=== PATIENT | female | born 1965 | race Caucasian/White ===

== ENCOUNTER → 2019-05-19 10:40 | Outpatient (BNVA) | payer MEDICARE, SELFPAY | PROVIDERS: Family Provider Family Medicine; PCP Family Medicine; Visit Provider Nurse Practitioner | DX: M51.37 Other intervertebral disc degeneration, lumbosacral region (principal); M96.1 Postlaminectomy syndrome, not elsewhere classified; R11.0 Nausea; Z79.891 Long term (current) use of opiate analgesic | CPT/HCPCS: 99214 ==

== ENCOUNTER 2019-05-19 13:24 | Outpatient (CLI) | payer MEDICARE, SELFPAY ==
[2019-05-16 09:45] VITALS: BP 144/85; BMI 40.2
--- NOTE | 2019-05-19 14:24 | XR_ITS ---
WS: [id number] LUMBAR SPINE TECHNIQUE: 3 views of the lumbar spine CLINICAL INFORMATION: BACK PAIN, DORSALGIA, UNSPECIFIED COMPARISON: None. FINDINGS: Mild lumbar curve convex right. Cholecystectomy clips. No acute appearing compression fractures. Mild disc space narrowing L4-L5 and L5-S1. Moderate facet arthropathy L5-S1. Pelvic phleboliths. XR/XR lumbar spine 2-3V* [id number] IMPRESSION: Mild lumbar curve convex right. Otherwise No acute lumbar spine findings.
== END 2019-05-19 13:25 | disposition home or self-care (01) ==
PROVIDERS: Family Provider Family Medicine; PCP Family Medicine; Visit Provider Nurse Practitioner
DX: M54.5 Low back pain (principal)
CPT/HCPCS: 72100

== ENCOUNTER → 2019-10-06 09:21 | Outpatient (BNVA) | payer MEDICARE, SELFPAY ==
[2019-05-16 09:45] VITALS: BP 144/85; BMI 40.2
== END ==
PROVIDERS: Family Provider Family Medicine; PCP Family Medicine; Visit Provider Anesthesiology
DX: M51.37 Other intervertebral disc degeneration, lumbosacral region (principal); M54.9 Dorsalgia, unspecified; M96.1 Postlaminectomy syndrome, not elsewhere classified; Z79.891 Long term (current) use of opiate analgesic
CPT/HCPCS: 99213; 99214

== ENCOUNTER → 2020-02-21 13:35 | Outpatient (BNVA) | payer MEDICARE, SELFPAY ==
[2020-02-17 14:13] VITALS: BP 142/80; BMI 42.8
== END ==
PROVIDERS: Family Provider Family Medicine; PCP Family Medicine; Visit Provider Anesthesiology
DX: M51.37 Other intervertebral disc degeneration, lumbosacral region (principal); M96.1 Postlaminectomy syndrome, not elsewhere classified; M54.9 Dorsalgia, unspecified; M54.2 Cervicalgia; Z79.891 Long term (current) use of opiate analgesic
CPT/HCPCS: 99214

== ENCOUNTER → 2020-03-16 11:05 | Outpatient (BNVA) | payer MEDICARE, SELFPAY ==
[2020-02-17 14:13] VITALS: BP 142/80; BMI 42.8
== END ==
PROVIDERS: Family Provider Family Medicine; PCP Family Medicine; Visit Provider Surgery
DX: Z20.828 Contact with and (suspected) exposure to other viral communicable diseases (principal)
CPT/HCPCS: 87635

== ENCOUNTER 2020-03-21 09:50 | Day surgery (SDC) | payer MEDICARE, SELFPAY ==
[2020-02-17 14:13] VITALS: BP 142/80; BMI 42.8
[2020-03-19 14:25] VITALS: BMI 44.1
[2020-03-21 10:52] VITALS: BP 196/125; PULSE 91; RESP 18; TEMP 36.2; O2SAT 99
--- NOTE | 2020-03-21 10:56 | W.PM.OPSFHP ---
Same Day Surgery H&P Indication for Procedure/HPI DATE OF PROCEDURE: March 21, 2020 CHIEF COMPLAINT/INDICATIONFOR SURGICAL PROCEDURE: Screening colonoscopy PREOP DIAGNOSIS: Family history of colon cancer PLANNED PROCEDRUE: Operation Date: 03/21/20 11:00 Proposed Procedures p Colonoscopy 22857 Z80.0(Not Applicable) - Tanmay Rodas MD History of present illness: This is a pleasant 54 years old female patient morbidly obese with a family history of colon cancer of her father, aunt and cousins. She denies bleeding per rectum or nonintentional weight loss. She reports that she had a colonoscopy before 6 years and was reported as normal. Patient is here today to discuss potential screening colonoscopy Interim history 03/21/2020 Patient comes today for screening colonoscopy ROS All systems have been reviewed negative except as per the above or per problem list. Medications/Allergies* Home Medications Medication Instructions Recorded Confirmed Type albuterol sulfate 90 mcg/actuation 1 inh INHALATION ONCE PRN 05/19/19 03/19/20 History aerosol inhaler atorvastatin 10 mg tablet 10 mg PO QDAY 05/19/19 03/21/20 History glimepiride 1 mg tablet 1 mg PO QAM 05/19/19 03/21/20 History hydroxyzine HCl 25 mg tablet 25 mg PO TID PRN 05/19/19 03/21/20 History metformin 750 mg tablet,extended 750 mg PO QDAY 05/19/19 03/21/20 History release 24 hr omeprazole 40 mg capsule,delayed 40 mg PO QDAY 05/19/19 03/21/20 History release polyethylene glycol 1450(bulk) each MISCELLANEOUS .as needed gm 05/19/19 02/21/20 History ropinirole 0.5 mg tablet 0.5 mg PO BID 05/19/19 03/21/20 History Allergies/Adverse Reactions Allergy/AdvReac Type Severity Reaction Status Date / Time buprenorphine [From Butrans] Allergy Unknown Unconscious Verified 03/21/20 10:56 codeine Allergy Unknown Verified 03/21/20 10:56 hydrocodone Allergy ALGY-Difficulty Verified 03/21/20 10:56 Breathing morphine Allergy ADR-Nausea Verified 03/21/20 10:56 oxycodone [From Roxicet] Allergy ALGY-Rash Verified 03/21/20 10:56 tramadol Allergy ADR-Nausea Verified 03/21/20 10:56 Pertinent History/Comorbid Conditions* Medical History (Updated 02/13/20 @ 12:52 by Tanmay Rodas MD) DDD (degenerative disc disease), lumbosacral Failed back syndrome, cervical Family history of colon cancer 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 Surgical History (Updated 05/19/19 @ 11:27 by JD Morris) Hx of section Hx of cholecystectomy 1995 Hx of hysterectomy 2012 Hx of neck surgery 2001 [place]- Fusion C6-C7 ACDFF Hx of tubal ligation Family History (Updated 02/13/20 @ 09:44 by Yani Chan LPN) Diabetes Unknown family members in general Heart disease Unknown Cancer Grandmother breast cancer-family members in general ovarian cancer-daughter brain cancer-paternal grandmother Denies family history of Anesthesia complication Bleeding disorder Social History Smoking and tobacco status: never smoked Second hand smoke exposure: No Alcohol intake: never Household members: spouse Marital status: Current occupational status: disabled History of recent travel: No Current gender identity: Female Pertinent Exam Findings alert, oriented x 3, clear to auscultation bilaterally, regular rate & rhythm and procedure specific exam findings (Abdominal examination nontender nondistended soft) Recommendations Surgery/Procedure today (Screening colonoscopy) Coding Level of Care Code Acute Welding Machine Operator Plasma Arc for Marcell Shah
[2020-03-21] MEDS: sodium chloride 0.9% 1,000 ML 30 ML IV (11:26)
--- NOTE | 2020-03-21 11:41 | ANES.PREANE2 ---
Pre-Anesthetic Assessment Pre-Anesthetic Assessment: Height/Weight: Height 1.55 m Weight 106.141 kg Temp Pulse Resp BP Pulse Ox 97.1 F L 91 18 196/125 99 03/21/20 10:52 03/21/20 10:52 03/21/20 10:52 03/21/20 10:52 03/21/20 10:52 Preop Diagnosis: Family history of colon cancer Proposed Procedure: Operation Date: 03/21/20 11:00 Proposed Procedures p Colonoscopy 71529 Z80.0(Not Applicable) - Tanmay Rodas MD Familial anesthetic complications: none Was Beta Karely taken within 24 hours: N/A Last intake: Intake Last Liquid Date 03/20/20 Last Liquid Time 19:00 Last Solid Date 03/19/20 Last Solid Time 18:00 Social: Social History: No alcohol and No tobacco Exam: Pre-Anes Outpt Exam: alert, oriented x 3, clear to auscultation bilaterally and regular rate & rhythm Airway: MP: 3 Dentition: Full Pulmonary: Pulmonary: Asthma GI: GI: GERD Metabolic: Metabolic: DM, Hyperlipidemia and Morbid obesity Neuropsych: Neuropsych: Anxiety Anesthetic Plan: ASA status: 2 Anesthesia: MAC Risk of > 500 ml blood loss (7ml/kg in children): No Meds/Allergies Current Medications: Current Medications Generic Name Dose Route Start Last Admin Trade Name Freq PRN Reason Stop Dose Admin Sodium Chloride 1,000 mls @ 30 ml s/hr 03/21/20 11:00 03/21/20 11:26 Sodium Chloride 0.9% IV 03/22/20 10:59 30 mls/hr .Q24H DALY Administration PFSH Anesthesia PFSH: Medical History (Updated 03/21/20 @ 13:25 by Tanmay Rodas MD) DDD (degenerative disc disease), lumbosacral Failed back syndrome, cervical Family history of colon cancer Generalized anxiety disorder penitentiary (current) use of opiate analgesic Surgical History Hx of section Hx of cholecystectomy 1995 Hx of hysterectomy 2012 Hx of neck surgery 2001 [place]- Fusion C6-C7 ACDFF Hx of tubal ligation Family History Grandmother Cancer breast cancer-family members in general ovarian cancer-daughter brain cancer-paternal grandmother Unknown Diabetes family members in general Unknown Heart disease Denies family history of Anesthesia complication Bleeding disorder Social History Smoking and tobacco status: never smoked Second hand smoke exposure: No Alcohol intake: never Household members: spouse Marital status: Current occupational status: disabled History of recent travel: No Current gender identity: Female Data Anesthesia Cardiac Studies: No Data to Display
[2020-03-21 11:43] LABS: Glucose Point of Care 148 mg/dL (70-110)
[2020-03-21] MEDS: labetalol 5 mg/mL SDV 20mL IVP ×2 (11:52→12:18)
[2020-03-21 12:19] VITALS: BP 173/111
[2020-03-21 12:31] VITALS: BP 183/109
[2020-03-21 12:51] VITALS: BP 186/105
[2020-03-21 13:25] VITALS: BP 126/79; PULSE 88; RESP 16; TEMP 36.1; O2SAT 97
[2020-03-21 13:41] VITALS: BP 145/92; PULSE 82; RESP 16; O2SAT 98
--- NOTE | 2020-03-21 21:08 | ANE.PACU2 ---
Inpatient post-anesthesia follow up: Airway intact: Yes Vital signs: Temperature 97 F Pulse Rate 82 Respiratory Rate 16 Blood Pressure 145/92 Pulse Oximetry 98 Oxygen Delivery Me thod Room Air Oxygen Flow Rate Fraction of Inspir ed Oxygen Hydration adequate: Yes Nausea and vomiting: No Pain level: 1 Mental status: Baseline
== END 2020-03-21 13:55 | disposition home or self-care (01) ==
PROVIDERS: PCP Family Medicine; Visit Provider Surgery
PROC: 0DJD8ZZ Inspection of Lower Intestinal Tract, Via Natural or Artificial Opening Endoscopic (ICD-10-PCS; CPT 45378; principal; 2020-03-21 11:00)
DX: Z12.11 Encounter for screening for malignant neoplasm of colon (principal); K57.30 Diverticulosis of large intestine without perforation or abscess without bleeding; E11.9 Type 2 diabetes mellitus without complications; E78.5 Hyperlipidemia, unspecified; E66.01 Morbid (severe) obesity due to excess calories; Z68.41 Body mass index [BMI] 40.0-44.9, adult; F41.9 Anxiety disorder, unspecified; M51.37 Other intervertebral disc degeneration, lumbosacral region; Z79.891 Long term (current) use of opiate analgesic; Z80.0 Family history of malignant neoplasm of digestive organs
CPT/HCPCS: 12345; 36416; 45378; 82962; J2704; J3490; J7030

== ENCOUNTER → 2020-05-18 09:47 | Outpatient (BNVA) | payer MEDICARE, SELFPAY ==
[2020-02-17 14:13] VITALS: BP 142/80; BMI 42.8
== END ==
PROVIDERS: PCP Family Medicine; Visit Provider Nurse Practitioner
DX: M25.512 Pain in left shoulder (principal); M51.37 Other intervertebral disc degeneration, lumbosacral region; M54.2 Cervicalgia; M96.1 Postlaminectomy syndrome, not elsewhere classified; M54.9 Dorsalgia, unspecified; Z79.891 Long term (current) use of opiate analgesic
CPT/HCPCS: 99214

== ENCOUNTER 2020-05-28 10:42 | Outpatient (CLI) | payer MEDICARE, SELFPAY ==
[2020-02-17 14:13] VITALS: BP 142/80; BMI 42.8
--- NOTE | 2020-05-28 11:00 | MR_ITS ---
WS: [id number] MRI LEFT SHOULDER NONCONTRAST TECHNIQUE: Sagittal T2, coronal T1, T2 and proton density imaging. Axial gradient PDE imaging. CLINICAL INFORMATION: M25.512 - Pain in left shoulder COMPARISON: None. FINDINGS: Moderate degenerative arthritis at the AC joint with mild edema. Mild downsloping of the acromion. Sl ight subacromial spurring. Mild chronic thinning of the distal supraspinatus. Normal infraspinatus. N ormal teres minor and subscapularis. No full-thickness rotator cuff tears. Normal biceps tendon in the bicipital groove. Degenerative fraying of the glenoid labrum. Biceps labr al anchor appears intact. Intra-articular biceps tendon appears intact. MR/MR shoulder LT wo con* [id number] IMPRESSION: 1. Moderate degenerative arthritis AC joint with mild edema. 2. Chronic thinning of the distal supraspinatus. No rotator cuff tears. 3. Normal biceps tendon in the bicipital groove. 4. Degenerative fraying glenoid labrum which appears grossly intact. 5. Moderate degenerative arthritis glenohumeral joint.
== END 2020-05-28 10:43 | disposition home or self-care (01) ==
LOC: RADSHAW 10:46
PROVIDERS: PCP Family Medicine; Visit Provider Nurse Practitioner
DX: M19.012 Primary osteoarthritis, left shoulder (principal); R60.0 Localized edema
CPT/HCPCS: 73221

== ENCOUNTER → 2020-07-13 09:55 | Outpatient (BNVA) | payer MEDICARE, SELFPAY ==
[2020-02-17 14:13] VITALS: BP 142/80; BMI 42.8
== END ==
PROVIDERS: PCP Family Medicine; Visit Provider Nurse Practitioner
DX: M51.37 Other intervertebral disc degeneration, lumbosacral region (principal); M96.1 Postlaminectomy syndrome, not elsewhere classified; M54.9 Dorsalgia, unspecified; M19.012 Primary osteoarthritis, left shoulder; Z79.891 Long term (current) use of opiate analgesic
CPT/HCPCS: 99213

== ENCOUNTER → 2020-09-13 10:15 | Outpatient (BNVA) | payer MEDICARE, SELFPAY ==
[2020-02-17 14:13] VITALS: BP 142/80; BMI 42.8
== END ==
PROVIDERS: PCP Family Medicine; Visit Provider Nurse Practitioner
DX: M51.37 Other intervertebral disc degeneration, lumbosacral region (principal); M96.1 Postlaminectomy syndrome, not elsewhere classified; M54.9 Dorsalgia, unspecified; M19.012 Primary osteoarthritis, left shoulder; Z79.891 Long term (current) use of opiate analgesic
CPT/HCPCS: 99213

== ENCOUNTER 2020-12-06 17:43 | Emergency (ER) | payer MEDICARE, SELFPAY ==
[2020-09-13 11:04] VITALS: BP 142/80; BMI 42.8
--- NOTE | 2020-12-06 17:57 | XRR_ITS ---
PROCEDURE INFORMATION: Exam: XR Chest Exam date and time: 12/06/2020 5:57 PM Age: 55 years old Clinical indication: Cough and shortness of breath; Additional info: Short of breath TECHNIQUE: Imaging protocol: XR of the chest. Views: 1 view. COMPARISON: MR shoulder LT wo con* [id number] 05/28/2020 12:33 PM FINDINGS: Lungs: Some hazy and linear opacities are seen in the lung bases most probably representing atelectasis. Bibasilar pneumonitis cannot be entirely excluded. Pleural spaces: Unremarkable. No pleural effusion. No pneumothorax. Heart/Mediastinum: Unremarkable. No cardiomegaly. Bones/joints: Unremarkable. XR/XR chest 1V portable [id number] IMPRESSION: Probable mild bilateral basilar atelectasis although a bibasilar pneumonitis cannot be entirely excluded.
[2020-12-06 18:32] VITALS: BP 135/100; PULSE 115; RESP 32; TEMP 38.7; O2SAT 98
[2020-12-06 22:59] VITALS: BP 162/108; PULSE 108; RESP 22; O2SAT 98
[2020-12-06 23:28] LABS: SARS Covid-2 Antigen Positive (Negative)
--- NOTE | 2020-12-06 23:38 | ED_ITS ---
HPI - COVID General: Chief Complaint: COVID symptoms Stated Complaint: cough, fever, sob Time Seen by Provider: 12/06/20 23:00 Source: patient Mode of arrival: ambulatory Limitations: no limitations Triage information: No fever, cough or shortness of breath . No known COVID + exposure last 14 days History of Present Illness: HPI Narrative: 55-year-old female has a history of COPD states that she has been having cold-like symptoms for 1 week and has been exposed to Covid. States that her cough and fever and worsened today. She has had some shortness of breath as well. Denies any vomiting or diarrhea. She denies any pain anywhere. Patient's pulse ox here is 94%. COVID 19 common symptoms: positive fever(s), chills, productive cough, dyspnea and body aches; negative headache(s), throat pain, nausea, vomiting or diarrhea COVID 19 other sytmptoms: negative chest pain COVID Results: SARS-CoV-2 Antigen (Rapid) Positive (Negative) H 12/06/20 23:02 12/06/20 SARS-CoV-2 RNA (RT-PCR) Not detected (NOT DETECTED) 03/16/20 11:05 03/16/20 Review of Systems Const: Reports: fever(s), chills and body aches Eyes: Denies: blurry vision or eye discomfort ENMT: Denies: throat pain or dental pain Card: Denies: chest pain Resp: Reports: dyspnea and productive cough GI: Denies: abdominal pain, nausea, vomiting or diarrhea : Denies: dysuria Musc: Denies: neck pain or back pain Skin/Breast: Denies: rash Neuro: Denies: headache(s) Psych: Denies: depression Jeff/Lymph: Denies: easy bruising All/Imm: Denies: urticaria PFSH ED PFSH: Medical History DDD (degenerative disc disease), lumbosacral Diverticula of colon Failed back syndrome, cervical Family history of colon cancer Generalized anxiety disorder residential (current) use of opiate analgesic Surgical History Hx of section Hx of cholecystectomy 1995 Hx of hysterectomy 2012 Hx of neck surgery 2001 [place]- Fusion C6-C7 ACDFF Hx of tubal ligation Family History Grandmother Cancer breast cancer-family members in general ovarian cancer-daughter brain cancer-paternal grandmother Unknown Diabetes family members in general Unknown Heart disease Denies family history of Anesthesia complication Bleeding disorder Social History Smoking and tobacco status: never smoked Second hand smoke exposure: No Alcohol intake: never Household members: spouse Marital status: Current occupational status: disabled History of recent travel: No Current gender identity: Female Physical Exam Const: COMMON NORMALS: no acute distress, patient oriented x3 and healthy appearing HENMT: COMMON NORMALS: normocephalic and atraumatic HEAD & SCALP: normocephalic and atraumatic Eye: COMMON NORMALS: Equal, round and reactive pupils present and EOMs intact bilaterally PUPIL: Yes Equal, round and reactive pupils present Neck/C-Spine: COMMON NORMALS: full ROM and supple Chest: COMMONS NORMALS: normal inspection of the chest and normal palpation of entire chest wall Resp: COMMON NORMALS: normal respiratory effort, No retractions, No use of accessory muscles and clear to auscultation bilaterally AUSCULTATION: clear to auscultation bilaterally Cardio: COMMON NORMALS: regular rate, regular rhythm and No murmurs present (Cardio) RATE: regular rate RHYTHM: regular rhythm GI: COMMON NORMALS: Normal to inspection, nondistended, normoactive bowel sounds present, Soft to palpation, non-tender and no masses PALPATION: Yes Soft to palpation Extremity: COMMON NORMALS: normal to inspection and full ROM Neuro: COMMON NORMALS: patient oriented x3, moves all extremities and no focal motor deficits Psych: COMMON NORMALS: mental status grossly normal, Normal thought process present and cooperative THOUGHT PROCESS: Normal thought process present Skin: COMMON NORMALS: no rashes or lesions noted and no wounds GENERAL SKIN EXAM: no rashes or lesions noted Course Vital Signs: Vital signs: Vital Signs Temperature 101.6 F H 12/06/20 18:32 Pulse Rate 108 H 12/06/20 22:59 Respiratory Rate 22 H 12/06/20 22:59 Blood Pressure 162/108 12/06/20 22:59 Pulse Oximetry 98 12/06/20 22:59 MDM - COVID MDM Narrative: Medical decision making narrative: Patient presents here with cough fever and did test positive for Covid. Her x-ray here is clear and she is not requiring any oxygen. We will place her on steroids. Did put an outpatient order in for monoclonal antibody. I did discuss this with her. She is to return if worsening. Lab Data: Labs: Lab Results 12/06/20 Range/Units 23:02 SARS-CoV-2 Ag (Rap id) Positive H (Negative) COVID Results: SARS-CoV-2 Antigen (Rapid) Positive (Negative) H 12/06/20 23:02 12/06/20 SARS-CoV-2 RNA (RT-PCR) Not detected (NOT DETECTED) 03/16/20 11:05 03/16/20 Discharge Plan Discharge Patient Disposition: Home Clinical Impression: COVID-19 Condition: Stable Prescriptions: New Medrol (Chaitanya) 4 mg tablets,dose pack See Rx Instructions .ROUTE .COMPLEX Qty: 21 RF: 0 No Action ropinirole 0.5 mg tablet 0.5 mg PO BID RF: 0 metformin 750 mg tablet extended release 24 hr 750 mg PO QDAY RF: 0 omeprazole 40 mg capsule,delayed release(DR/EC) 40 mg PO QDAY RF: 0 glimepiride 1 mg tablet 1 mg PO QAM RF: 0 atorvastatin 10 mg tablet 10 mg PO QDAY RF: 0 polyethylene glycol 1450(bulk) [Polyglycol Yifan Base] Powder miscellaneous .as needed RF: 0 albuterol sulfate [Ventolin HFA] 90 mcg/actuation HFA aerosol inhaler 1 inh INHALATION ONCE PRN (Reason: Shortness Of Breath) RF: 0 promethazine 25 mg tablet 25 mg PO Q6H MDD 4 PRN (Reason: nausea and vomiting) Qty: 120 RF: 1 meloxicam [Mobic] 15 mg tablet 15 mg PO DAILY RF: 0 aripiprazole [Abilify] 5 mg tablet 5 mg PO QDAY Qty: 90 RF: 1 tizanidine 4 mg tablet 4 mg PO TID PRN (Reason: muscle spasticity) Qty: 90 RF: 2 hydromorphone 2 mg tablet 2 mg PO TID 30 Days Qty: 90 RF: 0 pregabalin 75 mg capsule 75 mg PO TID 30 Days Qty: 90 RF: 1 hydromorphone 2 mg tablet 2 mg PO TID PRN (Reason: pain) 30 Days Qty: 90 RF: 0 Discharge Orders: Discharge ED (Routine); Ordered 12/06/20 Ordered By: Darrel Diego Other Ambulatory Orders: Request for MCA (Routine) Timeframe: 1 Day Facility: [facility] - Location: Outpatient [facility] Ordered By: Darrel Diego Referrals: Mari Pratt MD [Primary Care Provider] - Discharge Diet: Advance as tolerated Discharge Activity: Resume usual activity Patient Instructions: Viral Syndrome (ED) Coding Level of Care Code ED Media Production Support Manager for Chg Fwd Exam Comprehensive
[2020-12-06] MEDS: predniSONE 20 mg Tablet 40 MG PO (23:51)
[2020-12-07 00:05] VITALS: O2SAT 96
[2020-12-07 00:07] VITALS: BP 141/85; PULSE 101; RESP 18; O2SAT 95
== END 2020-12-07 00:09 | disposition home or self-care (01) ==
PROVIDERS: Nurse Practitioner Family; Emergency Provider Emergency Medicine; PCP Family Medicine
DX: U07.1 COVID-19 (principal); Z79.84 Long term (current) use of oral hypoglycemic drugs
CPT/HCPCS: 71045; 87426; 99283; J7512

== ENCOUNTER → 2020-12-28 10:13 | Outpatient (BNVA) | payer MEDICARE, SELFPAY ==
[2020-09-13 11:04] VITALS: BP 142/80; BMI 42.8
== END ==
PROVIDERS: PCP Family Medicine; Visit Provider Nurse Practitioner
DX: M51.37 Other intervertebral disc degeneration, lumbosacral region (principal); M96.1 Postlaminectomy syndrome, not elsewhere classified; M54.2 Cervicalgia; M19.012 Primary osteoarthritis, left shoulder; Z79.891 Long term (current) use of opiate analgesic
CPT/HCPCS: 99213

== ENCOUNTER → 2021-03-21 10:01 | Outpatient (BNVA) | payer MEDICARE, SELFPAY ==
[2020-09-13 11:04] VITALS: BP 142/80; BMI 42.8
== END ==
PROVIDERS: PCP Family Medicine; Visit Provider Anesthesiology
DX: M51.37 Other intervertebral disc degeneration, lumbosacral region (principal); M96.1 Postlaminectomy syndrome, not elsewhere classified; M25.512 Pain in left shoulder; Z79.891 Long term (current) use of opiate analgesic
CPT/HCPCS: 99213

== ENCOUNTER → 2021-04-08 12:23 | Outpatient (BNVA) | payer MEDICARE, SELFPAY ==
[2020-09-13 11:04] VITALS: BP 142/80; BMI 42.8
== END ==
PROVIDERS: PCP Family Medicine; Visit Provider Registered Nurse
DX: Z79.899 Other long term (current) drug therapy (principal)
CPT/HCPCS: 36415; 80061; 83036

== ENCOUNTER → 2021-06-14 10:08 | Outpatient (BNVA) | payer MEDICARE, SELFPAY ==
[2021-04-22 16:42] VITALS: BP 145/85; BMI 41.6
== END ==
PROVIDERS: PCP Family Medicine; Visit Provider Anesthesiology
DX: M96.1 Postlaminectomy syndrome, not elsewhere classified (principal); M25.512 Pain in left shoulder; M51.37 Other intervertebral disc degeneration, lumbosacral region; Z79.891 Long term (current) use of opiate analgesic
CPT/HCPCS: 99213; 99214

== ENCOUNTER → 2023-07-07 10:13 | Outpatient (BNVA) | payer MEDICARE, SELFPAY ==
[2021-04-22 16:42] VITALS: BP 145/85; BMI 41.6
== END ==
PROVIDERS: PCP Family Medicine; Visit Provider Psychiatry & Neurology Psychiatry
DX: Z79.899 Other long term (current) drug therapy (principal)
CPT/HCPCS: 80053; 80061; 83036; 84443; 85025

== ENCOUNTER 2023-11-04 08:27 | Outpatient (CLI) | payer MEDICARE, SELFPAY ==
[2021-04-22 16:42] VITALS: BP 145/85; BMI 41.6
--- NOTE | 2023-11-04 08:30 | MR_ITS ---
WS: [id number] MRI LUMBAR SPINE NONCONTRAST TECHNIQUE: Sagittal T1, T2 and STIR imaging. Axial T1 and T2 imaging. CLINICAL INFORMATION: LUMBAR DDD COMPARISON: None. FINDINGS: Mild lumbar curve. No acute compression. No high-grade central canal stenosis. L1-L2: Moderate facet arthropathy. Spinal canal and foramen are patent. L2-L3: Moderate facet arthropathy. Spinal canal and foramen are patent. L3-L4: No significant disc bulging. Moderate facet arthropathy. Spinal canal and foramen are patent. L4-L5: Minimal annular bulging. Slight narrowing of the subarticular recess bilaterally LEFT greater than RIGHT. Moderate facet arthropathy. Spinal canal and foramen are patent. L5-S1: Mild annular bulging. Slight effacement of the ventral thecal sac. Moderate facet arthropathy. Spinal canal and foramen are patent. Visualized pelvic bony structures: Normal. Paravertebral soft tissues: Normal. Prior postoperative changes ACDF in the cervical spine at C6-7 seen on adult secondary education instructor imaging. MR/MR lumbar spine wo con* [id number] IMPRESSION: 1. Mild lumbar curve. No acute compression. No high-grade central canal stenos is. 2. Mild annular bulging L4-5 with slight effacement of the ventral thecal sac and narrowing of the LEFT greater than RIGHT subarticular recess. Slight encroa chment on the traversing LEFT L5 nerve root. 3. Mild annular bulging L5-S1. 4. Moderate facet arthropathy throughout the lumbar spine.
== END 2023-11-04 08:28 | disposition home or self-care (01) ==
LOC: RAD 08:27
PROVIDERS: PCP Family Medicine; Visit Provider General Practice
DX: M51.36 Other intervertebral disc degeneration, lumbar region (principal); M47.896 Other spondylosis, lumbar region; M47.898 Other spondylosis, sacral and sacrococcygeal region
CPT/HCPCS: 72148